=== PATIENT | female | born 2000 ===

== ENCOUNTER 2025-04-05 01:45 | Inpatient (IN) | payer BC ==
[2025-04-05] MEDS ORDERED: Labetalol 100 MG/20 ML MDV IVPUSH PRN (02:33)
[2025-04-05] MEDS ORDERED: Sodium Chloride 0.9% 10 ML Syringe FLUSH PRN ×3 (02:33→12:07)
[2025-04-05] MEDS ORDERED: Sodium Chloride 0.9% 2.5 ML Syringe FLUSH PRN ×3 (02:33→12:07)
[2025-04-05] MEDS: Lactated Ringers 1,000 ML IV SCH (02:35)
[2025-04-05 03:12] LABS: BASOPHILS ABSOLUTE AUTO 0.03 K/uL (0.00-0.20); BASOPHILS PERCENT AUTO 0.2 % (0.0-1.0); EOSINOPHILS ABSOLUTE AUTO 0.10 K/uL (0.00-0.45); EOSINOPHILS PERCENT AUTO 0.5 % (0.0-6.0); IMMATURE GRAN ABSOLUTE AUTO 0.14 K/uL (0.00-0.05); IMMATURE GRAN PERCENT AUTO 0.8 % (0.0-0.4); LYMPHOCYTES ABSOLUTE AUTO 1.09 K/uL (1.00-4.80); LYMPHOCYTES PERCENT AUTO 5.9 % (24.0-44.0); MEAN PLATELET VOLUME 10.5 fL (9.4-12.3); MONOCYTES ABSOLUTE AUTO 0.56 K/uL (0.00-0.80); MONOCYTES PERCENT AUTO 3.0 % (0.0-8.0); NEUTROPHILS ABSOLUTE AUTO 16.54 K/uL (1.80-7.70); NEUTROPHILS PERCENT AUTO 89.6 % (41.0-71.0); NRBC ABSOLUTE 0.00 K/uL (0.00-0.02); NRBC PERCENT 0.0 /100WBC (0.0-0.2); PLATELET COUNT,PLT 186 K/uL (150-400); RED BLOOD CELL COUNT 4.76 M/uL (4.10-5.30); WHITE BLOOD CELL COUNT,WBC 18.46 K/uL (3.9-11.3)
[2025-04-05 03:30] LABS: INR < 0.93 (0.86-1.11)
[2025-04-05 03:34] LABS: A/G RATIO 0.8 (0.9-1.6); ALANINE AMINOTRANSFERASE,ALT 22.0 IU/L (14-63); ASPARTATE AMNIOTRANSFERASE,AST 21.0 IU/L (15-37); BILIRUBIN TOTAL 0.4 mg/dL (0.2-1.0); BLOOD UREA NITROGEN,BUN 12.0 mg/dL (7.0-18.0); CARBON DIOXIDE,CO2 17.4 mmol/L (21.0-32.0); CHLORIDE,CL 98.0 mmol/L (98-107); CREATININE 0.8 mg/dL (0.6-1.0); EST CRCL DRUG DOSING (CG) 118.27 mL/min; GLUCOSE RANDOM 121.0 mg/dL (74-106); POTASSIUM,K 3.7 mmol/L (3.5-5.1); PROTEIN TOTAL,TP 6.3 g/dL (6.4-8.2); SODIUM,NA 133.0 mmol/L (136-145)
[2025-04-05 03:35] LABS: ESTIMATED GFR 106.0 mL/min (>60)
[2025-04-05] MEDS ORDERED: Water For Irrigation,Sterile 1,000 ML Container IRR PRN (04:51)
[2025-04-05] MEDS ORDERED: Carboprost Tromethamine 250 MCG/1 mL Vial IM PRN ×2 (04:51→12:07)
[2025-04-05] MEDS ORDERED: Oxytocin/0.9 % Sodium Chloride 30 UNIT/500 ML BAG IV SCH ×2 (05:00→12:15)
[2025-04-05 08:47] LABS: MEAN PLATELET VOLUME 9.8 fL (9.4-12.3); NRBC ABSOLUTE 0.00 K/uL (0.00-0.02); NRBC PERCENT 0.0 /100WBC (0.0-0.2); PLATELET COUNT,PLT 192 K/uL (150-400); RED BLOOD CELL COUNT 4.56 M/uL (4.10-5.30); WHITE BLOOD CELL COUNT,WBC 21.80 K/uL (3.9-11.3)
[2025-04-05] MEDS ORDERED: Propofol 200 MG/20 ML SDV ONE (09:49)
[2025-04-05] MEDS ORDERED: Succinylcholine/Sod PF 100 MG/5 ML SYRINGE IV ONE (09:51)
[2025-04-05] MEDS ORDERED: fentaNYL 100 MCG/2 ML SDV ONE ×2 (09:51→10:01)
[2025-04-05] MEDS ORDERED: Oxytocin 10 Units/1 ML SDV ONE ×4 (10:04→10:05)
[2025-04-05] MEDS ORDERED: Ondansetron 4 MG/2 ML SDV ONE ×2 (10:05)
[2025-04-05] MEDS ORDERED: Morphine PF 10 MG/10 ML SDV ONE (10:09)
[2025-04-05] MEDS ORDERED: Metoprolol Tartrate 5 MG/5 ML SDV ONE (10:16)
[2025-04-05] MEDS ORDERED: Ketorolac 30 MG/ML SDV ONE (10:53)
[2025-04-05] MEDS ORDERED: Ondansetron 4 MG/2 ML SDV IVPUSH PRN ×2 (11:13→12:07)
[2025-04-05] MEDS ORDERED: Albuterol 0.083% 2.5 MG/3 ML Neb Soln NEB PRN (11:13)
[2025-04-05] MEDS ORDERED: fentaNYL 50 MCG/ML SDV IVPUSH PRN (11:13)
[2025-04-05] MEDS ORDERED: Naloxone 0.4 MG/ML SDV IVPUSH PRN (11:13)
[2025-04-05 11:22] LABS: PH,UMBILICAL ARTERIAL 7.29 (7.18-7.38); PH,UMBILICAL VENOUS 7.31 (7.25-7.45)
[2025-04-05] MEDS ORDERED: Diphtheria,Pertussis(Acell),Tetanus Vaccine 0.5 ML Syringe IM ONE (12:07)
[2025-04-05] MEDS ORDERED: Measles, Mumps & Rubella Vaccine 0.5 ML SDV SUBCUT ONE (12:07)
[2025-04-05 12:38] LABS: AMPHETAMINES SCREEN, URINE NEGATIVE (CUTOFF=500); BUPRENORPHINE SCREEN,URINE NEGATIVE (CUTOFF=10); METHADONE SCREEN, URINE NEGATIVE (CUTOFF=200); METHAMPHETAMINES SCREEN, URINE NEGATIVE (CUTOFF=500); OXYCODONE SCREEN,URINE NEGATIVE (CUT0FF=100); PCP SCREEN,URINE NEGATIVE (CUTOFF=25); THC SCREEN,URINE 20 NG/ML NEGATIVE (CUTOFF=50)
[2025-04-05 12:47] LABS: CREATININE,URINE RAND 37.9 mg/dL; PROTEIN CREATININE RATIO,URINE 1.2; PROTEIN,URINE RANDOM 45.5 mg/dL (<11.9)
[2025-04-05] MEDS: Ketorolac 30 MG/ML SDV IVPUSH SCH ×2 (16:30→22:34)
[2025-04-05] MEDS: Lanolin 100% Cream 7 GM Tube TOP PRN (16:40)
[2025-04-06 05:37] LABS: BASOPHILS ABSOLUTE AUTO 0.05 K/uL (0.00-0.20); BASOPHILS PERCENT AUTO 0.3 % (0.0-1.0); EOSINOPHILS ABSOLUTE AUTO 0.03 K/uL (0.00-0.45); EOSINOPHILS PERCENT AUTO 0.2 % (0.0-6.0); IMMATURE GRAN ABSOLUTE AUTO 0.15 K/uL (0.00-0.05); IMMATURE GRAN PERCENT AUTO 0.8 % (0.0-0.4); LYMPHOCYTES ABSOLUTE AUTO 3.00 K/uL (1.00-4.80); LYMPHOCYTES PERCENT AUTO 16.5 % (24.0-44.0); MEAN PLATELET VOLUME 9.6 fL (9.4-12.3); MONOCYTES ABSOLUTE AUTO 1.49 K/uL (0.00-0.80); MONOCYTES PERCENT AUTO 8.2 % (0.0-8.0); NEUTROPHILS ABSOLUTE AUTO 13.42 K/uL (1.80-7.70); NEUTROPHILS PERCENT AUTO 74.0 % (41.0-71.0); NRBC ABSOLUTE 0.00 K/uL (0.00-0.02); NRBC PERCENT 0.0 /100WBC (0.0-0.2); PLATELET COUNT,PLT 182 K/uL (150-400); RED BLOOD CELL COUNT 4.26 M/uL (4.10-5.30); WHITE BLOOD CELL COUNT,WBC 18.14 K/uL (3.9-11.3)
== END 2025-04-07 18:20 | disposition home or self-care (01) | DRG 540 ==
LOC: MW.OB 01:45 → OBSVTOIN 12:07 → MW.OB 20:47
PROVIDERS: ADMIT Obstetrics & Gynecology; ATTEND Obstetrics & Gynecology
PROC: 4A1HXCZ Monitoring of Products of Conception, Cardiac Rate, External Approach (ICD-10-PCS; 2025-04-05)
PROC: 10D00Z1 Extraction of Products of Conception, Low, Open Approach (ICD-10-PCS; principal; 2025-04-05 09:52)
DX: O45.93 Premature separation of placenta, unspecified, third trimester (principal); O76 Abnormality in fetal heart rate and rhythm complicating labor and delivery; Z3A.39 39 weeks gestation of pregnancy; Z37.0 Single live birth; O99.214 Obesity complicating childbirth; O13.4 Gestational [pregnancy-induced] hypertension without significant proteinuria, complicating childbirth; O77.0 Labor and delivery complicated by meconium in amniotic fluid
CPT/HCPCS: 36415; 59025; 76805; 76805-26; 80053; 80305; 82570; 82803; 84156; 84550; 85025; 85027; 85384; 85610; 86592; 86706; 86762; 86850; 86900; 86901; 87340; 87389; A9270-GY; J0456; J0690; J1100; J1171; J1790; J1885; J2274; J2405; J2590; J2704; J3010; J3490; J7120